=== PATIENT | female | born 1955 | race Caucasian/White ===

== ENCOUNTER 2018-09-27 20:21 | Inpatient (IN) | payer SELFPAY ==
[2018-09-27] MEDS ORDERED: Haloperidol INJ IV/IM* 5 MG/ML AMP IM ONE (21:28)
--- NOTE | 2018-09-27 21:29 | ED ---
Medical Screening - HPI Summary HPI Summary: Patient not cooperative highly agitated. Patient alert and oriented. Per son, patient who has no prior history of mental illness, has been acting highly agitated, delusional, paranoid over the past 6 weeks. States patient is sleeping intermittently, believes people are chasing her. States patient lives alone here [place]. Recently went on a family trip down to [place] and was subsequently admitted for 1 week in [place] for mental health issues. Patient has been out 2 weeks but has been acting the same since. Per son, patient was seen by PCP at [facility] and was referred to [facility] who instituted a 945 after evaluating patient. Son denies any indication of SI, HI. States patient medical history is DM, chronic back and shoulder pain. Son denies any knowledge of new medication, no significant physical or medical symptoms. States occasional EtOH, denies any knowledge of recreational drug use by patient. - History of Current Complaint Chief Complaint: EDMentalHealth Stated Complaint: MHE PER PT SON Time Seen by Provider: 09/27/18 20:49 Onset/Duration: Started Weeks Ago Severity: moderate PMH/Surg Hx/FS Hx/Imm Hx Endocrine/Hematology History: Reports: Hx Diabetes Cardiovascular History: Denies: Hx Pacemaker/ICD History: Denies: Hx Dialysis Musculoskeletal History: Reports: Hx Back Problems Denies: Hx Scoliosis Sensory History: Denies: Hx Eye Prosthesis Opthamlomology History: Denies: Hx Legally Blind EENT History: Denies: Hx Deafness Neurological History: Reports: Other Neuro Impairments/Disorders - MILD DJD PER PT., NO SX'S Denies: Hx Headaches Psychiatric History: Denies: Hx Autism Infectious Disease History: No Infectious Disease History: Denies: Traveled Outside the [place] in Last 30 Days - Social History Lives: Alone Alcohol Use: Occasionally Substance Use Type: Reports: None Hx Tobacco Use: No Review of Systems Constitutional: Negative Eyes: Negative ENT: Negative Cardiovascular: Negative Respiratory: Negative Gastrointestinal: Negative Genitourinary: Negative Musculoskeletal: Negative Skin: Negative Neurological: Negative Positive: Anxious, Other - agitated, not cooperative All Other Systems Reviewed And Are Negative: Yes Physical Exam Triage Information Reviewed: Yes Vital Signs On Initial Exam: Initial Vitals Temp Pulse Resp BP Pulse Ox 0 F 0 20 0/0 0 09/27/18 20:40 09/27/18 20:40 09/27/18 20:40 09/27/18 20:40 09/27/18 20:40 Vital Signs Reviewed: Yes Appearance: Positive: Well-Appearing Skin: Positive: Warm Head/Face: Positive: Normal Head/Face Inspection Eyes: Positive: Normal Neck: Positive: Supple Musculoskeletal: Positive: Normal Neurological: Positive: Normal Psychiatric: Positive: Other, Patient Uncooperative for Exam AVPU Assessment: Alert - Saulo Coma Scale Best Eye Response: 4 - Spontaneous Best Motor Response: 6 - Obeys Commands Best Verbal Response: 5 - Oriented Coma Scale Total: 15 Diagnostics - Vital Signs Vital Signs Temp Pulse Resp BP Pulse Ox 09/27/18 20:40 0 F 0 20 0/0 0 - Laboratory Result Diagrams: 09/27/18 22:38 09/27/18 22:38 Lab Statement: Any lab studies that have been ordered have been reviewed, and results considered in the medical decision making process. Course/Dx - Course Course Of Treatment: Patient not cooperative highly agitated. Patient alert and oriented. Per son, patient who has no prior history of mental illness, has been acting highly agitated, delusional, paranoid over the past 6 weeks. [facility] patient is sleeping intermittently, believes people are chasing her. [facility] patient lives alone here [place]. Recently went on a family trip down to [place] and was subsequently admitted for 1 week in [place] for mental health issues. Patient has been out 2 weeks but has been acting the same since. Per son, patient was seen by PCP at [facility] and was referred to [facility] who instituted a 945 after evaluating patient. Son denies any indication of SI, HI. [facility] patient medical history is DM, chronic back and shoulder pain. Son denies any knowledge of new medication, no significant physical or medical symptoms. States occasional EtOH, denies any knowledge of recreational drug use by patient. Patient on cooperative with physical exam, but is alert and oriented, moving normally. No work of breathing noted, no indication of pain. Vital signs within normal limits. Patient signed out to attending Dr. Stephens pending mental health evaluation. - Diagnoses Provider Diagnoses: Psychosis Discharge - Sign-Out/Discharge Documenting (check all that apply): Sign-Out Patient Signing out patient TO: Venu Currie Patient Received Moderate/Deep Sedation with Procedure: No - Discharge Plan Condition: Fair Disposition: ADMITTED TO [facility] - Billing Disposition and Condition Condition: FAIR Disposition: Admitted to [facility]
[2018-09-27] MEDS ORDERED: diPHENhydraMINE IV* 50 MG/ML 1 ml VIAL (BENADRYL) IM ONE (21:43)
[2018-09-27] MEDS ORDERED: LORazepam INJ* 2 MG/ML 1 ML VIAL IM ONE (21:43)
[2018-09-27] MEDS ORDERED: diPHENhydraMINE IV* 50 MG/ML 1 ml VIAL (BENADRYL) ONE (21:46)
[2018-09-27] MEDS ORDERED: LORazepam INJ* 2 MG/ML 1 ML VIAL ONE (21:47)
[2018-09-27 22:46] LABS: ABS Basophils 0.1 10^3/ul (0-0.2); ABS Eosinophils 0.1 10^3/ul (0-0.6); ABS Lymphocytes 1.7 10^3/ul (1.0-4.8); ABS Monocytes 0.8 10^3/ul (0-0.8); ABS Neutrophils 7.8 10^3/ul (1.5-7.7); ABS Nucleated RBC 0 10^3/ul; Eosinophil % 0.8 %; Hematocrit 45 % (33-41); Hemoglobin 15.3 g/dL (12.0-16.0); Lymphocyte % 16.1 %; Mean Corpuscular HGB Conc 34 g/dL (31-36); Mean Corpuscular Hemoglobin 31 pg (27-31); Mean Corpuscular Volume 90 fL (80-97); Nucleated Red Blood Cells % 0; Platelet Count 236 10^3/uL (150-450); Red Blood Count 4.98 10^6 /uL (3.70-4.87); Red Cell Distribution Width 13 % (10.5-15); White Blood Count 10.4 10^3/uL (3.5-10.8)
[2018-09-27 23:04] LABS: ALT 16 U/L (7-52); AST 19 U/L (13-39); Albumin/Globulin Ratio 1.9 (1-3); Alkaline Phosphatase 81 U/L (34-104); Anion Gap 8 mmol/L (2-11); BUN/Creatinine Ratio 14.1 (8-20); Blood Urea Nitrogen 11 mg/dL (6-24); CO2 Carbon Dioxide 24 mmol/L (22-32); Calcium 10.4 mg/dL (8.6-10.3); Chloride 105 mmol/L (101-111); EGFR Non-African American 74.4 (>60); Globulin 2.1 g/dL (2-4); Glucose 191 mg/dL (70-100); Potassium 3.4 mmol/L (3.5-5.0); Sodium 137 mmol/L (135-145); Total Protein 6.1 g/dL (6.4-8.9)
[2018-09-27 23:07] LABS: Acetaminophen < 15 mcg/mL; Alcohol < 10 mg/dL (<10); Salicylate < 2.50 mg/dL (<30)
[2018-09-27 23:21] LABS: TSH (Thyroid Stimulating Horm) 2.19 mcIU/mL (0.34-5.60)
[2018-09-28 08:57] LABS: Urine Appearance Cloudy; Urine Bilirubin Negative (Negative); Urine Blood Negative (Negative); Urine Color Yellow; Urine Glucose Negative (Negative); Urine Ketones Trace (Negative); Urine Nitrite Negative (Negative); Urine Protein Negative (Negative); Urine Specific Gravity 1.017 (1.010-1.030); Urine Urobilinogen Negative (Negative)
[2018-09-28 09:12] LABS: Barbiturates Urine Screen None Detected (None Detect); Benzodiazepine Urine Screen None Detected (None Detect); Urine Cannabinoids Screen None Detected (None Detect)
--- NOTE | 2018-09-28 09:28 | PN ---
ED Flex Patient Progress Note Date of Service: 09/27/18 Subjective: This is a 63 year-old F who is pending admission to [facility] / transfer to another psychiatric facility / discharge to home / or being observed secondary to delusions, paranoia. Pt. examined in room 5 at 0915. She resting comfortably without complaints. Eating breakfast. Objective: Vitals: Most recent vital signs documented below. General NAD, Alert and oriented x3. Laboratory: Current laboratory results documented below. Assessment: Paranoia. Plan: Pending MHE. Vital Signs Temp Pulse Resp BP Pulse Ox 0 F 68 22 103/64 97 09/27/18 20:40 09/28/18 07:00 09/27/18 21:49 09/28/18 06:51 09/28/18 07:00 Lab Results - Entire Visit 09/28/18 09/28/18 09/27/18 08:37 08:37 22:38 WBC RBC Hgb Hct MCV MCH MCHC RDW Plt Count MPV Neut % (Auto) Lymph % (Auto) [place] % (Auto) Eos % (Auto) Baso % (Auto) Absolute Neuts (auto) Absolute Lymphs (auto) Absolute Monos (auto) Absolute Eos (auto) Absolute Basos (auto) Absolute Nucleated RBC Nucleated RBC % Sodium 137 Potassium 3.4 L Chloride 105 Carbon Dioxide 24 Anion Gap 8 BUN 11 Creatinine 0.78 Est GFR ( Amer) 90.0 Est GFR (Non-Af Amer) 74.4 BUN/Creatinine Ratio 14.1 Glucose 191 H Calcium 10.4 H Total Bilirubin 0.70 AST 19 ALT 16 Alkaline Phosphatase 81 Total Protein 6.1 L Albumin 4.0 Globulin 2.1 Albumin/Globulin Ratio 1.9 TSH 2.19 Urine Color Yellow Urine Appearance Cloudy Urine pH 6.0 Ur Specific [place] 1.017 Urine Protein Negative Urine Ketones Trace A Urine Blood Negative Urine Nitrate Negative Urine Bilirubin Negative Urine Urobilinogen Negative Ur Leukocyte Esterase Negative Urine Glucose Negative Salicylates < 2.50 Urine Opiates Screen None detected Acetaminophen < 15 Ur Barbiturates Screen None detected Ur Phencyclidine Scrn None detected Ur Amphetamines Screen None detected U Benzodiazepines Scrn None detected Urine Cocaine Screen None detected U Cannabinoids Screen None detected Serum Alcohol < 10 09/27/18 22:38 WBC 10.4 RBC 4.98 H Hgb 15.3 Hct 45 H MCV 90 MCH 31 MCHC 34 RDW 13 Plt Count 236 MPV 10.0 Neut % (Auto) 74.9 Lymph % (Auto) 16.1 [place] % (Auto) 7.2 Eos % (Auto) 0.8 Baso % (Auto) 1.0 Absolute Neuts (auto) 7.8 H Absolute Lymphs (auto) 1.7 Absolute Monos (auto) 0.8 Absolute Eos (auto) 0.1 Absolute Basos (auto) 0.1 Absolute Nucleated RBC 0 Nucleated RBC % 0 Sodium Potassium Chloride Carbon Dioxide Anion Gap BUN Creatinine Est GFR ( Amer) Est GFR (Non-Af Amer) BUN/Creatinine Ratio Glucose Calcium Total Bilirubin AST ALT Alkaline Phosphatase Total Protein Albumin Globulin Albumin/Globulin Ratio TSH Urine Color Urine Appearance Urine pH Ur Specific [place] Urine Protein Urine Ketones Urine Blood Urine Nitrate Urine Bilirubin Urine Urobilinogen Ur Leukocyte Esterase Urine Glucose Salicylates Urine Opiates Screen Acetaminophen Ur Barbiturates Screen Ur Phencyclidine Scrn Ur Amphetamines Screen U Benzodiazepines Scrn Urine Cocaine Screen U Cannabinoids Screen Serum Alcohol
[2018-09-28] MEDS ORDERED: Al Hydrox/Mg Hydrox/Simet LIQ* 30 ML UDC PO PRN (16:21)
[2018-09-28] MEDS ORDERED: Acetaminophen TAB* 325 MG PO PRN (16:21)
[2018-09-28] MEDS ORDERED: Nicotine GUM* 2 MG PO PRN (16:21)
--- NOTE | 2018-09-28 16:21 | PN ---
ED Flex Patient Progress Note Date of Service: 09/28/18 Subjective: 63 y.o. white female with no previous mental health history started becoming confused and delusional following a routine colonoscopy event in July of this year. She presents as disorganized and combative, requiring stat medication in the ED Objective: aging white female in blue paper scrubs, disorganized and irrational Assessment: Unspecified Psychotic DO Plan: Admit to [facility] on involuntary 9.39 status. Vital Signs Temp Pulse Resp BP Pulse Ox 0 F 71 22 139/54 97 09/27/18 20:40 09/28/18 10:00 09/27/18 21:49 09/28/18 09:56 09/28/18 10:00 Lab Results - Entire Visit 09/28/18 09/28/18 09/27/18 08:37 08:37 22:38 WBC RBC Hgb Hct MCV MCH MCHC RDW Plt Count MPV Neut % (Auto) Lymph % (Auto) [place] % (Auto) Eos % (Auto) Baso % (Auto) Absolute Neuts (auto) Absolute Lymphs (auto) Absolute Monos (auto) Absolute Eos (auto) Absolute Basos (auto) Absolute Nucleated RBC Nucleated RBC % Sodium 137 Potassium 3.4 L Chloride 105 Carbon Dioxide 24 Anion Gap 8 BUN 11 Creatinine 0.78 Est GFR ( Amer) 90.0 Est GFR (Non-Af Amer) 74.4 BUN/Creatinine Ratio 14.1 Glucose 191 H Calcium 10.4 H Total Bilirubin 0.70 AST 19 ALT 16 Alkaline Phosphatase 81 Total Protein 6.1 L Albumin 4.0 Globulin 2.1 Albumin/Globulin Ratio 1.9 TSH 2.19 Urine Color Yellow Urine Appearance Cloudy Urine pH 6.0 Ur Specific [place] 1.017 Urine Protein Negative Urine Ketones Trace A Urine Blood Negative Urine Nitrate Negative Urine Bilirubin Negative Urine Urobilinogen Negative Ur Leukocyte Esterase Negative Urine Glucose Negative Salicylates < 2.50 Urine Opiates Screen None detected Acetaminophen < 15 Ur Barbiturates Screen None detected Ur Phencyclidine Scrn None detected Ur Amphetamines Screen None detected U Benzodiazepines Scrn None detected Urine Cocaine Screen None detected U Cannabinoids Screen None detected Serum Alcohol < 10 09/27/18 22:38 WBC 10.4 RBC 4.98 H Hgb 15.3 Hct 45 H MCV 90 MCH 31 MCHC 34 RDW 13 Plt Count 236 MPV 10.0 Neut % (Auto) 74.9 Lymph % (Auto) 16.1 [place] % (Auto) 7.2 Eos % (Auto) 0.8 Baso % (Auto) 1.0 Absolute Neuts (auto) 7.8 H Absolute Lymphs (auto) 1.7 Absolute Monos (auto) 0.8 Absolute Eos (auto) 0.1 Absolute Basos (auto) 0.1 Absolute Nucleated RBC 0 Nucleated RBC % 0 Sodium Potassium Chloride Carbon Dioxide Anion Gap BUN Creatinine Est GFR ( Amer) Est GFR (Non-Af Amer) BUN/Creatinine Ratio Glucose Calcium Total Bilirubin AST ALT Alkaline Phosphatase Total Protein Albumin Globulin Albumin/Globulin Ratio TSH Urine Color Urine Appearance Urine pH Ur Specific [place] Urine Protein Urine Ketones Urine Blood Urine Nitrate Urine Bilirubin Urine Urobilinogen Ur Leukocyte Esterase Urine Glucose Salicylates Urine Opiates Screen Acetaminophen Ur Barbiturates Screen Ur Phencyclidine Scrn Ur Amphetamines Screen U Benzodiazepines Scrn Urine Cocaine Screen U Cannabinoids Screen Serum Alcohol
[2018-09-28] MEDS ORDERED: LORazepam TAB(*) 1 MG PO PRN (16:23)
[2018-09-28] MEDS ORDERED: Haloperidol TAB* 5 MG PO PRN (16:23)
[2018-09-28] MEDS: Mouth Piece, Nicotine* 1 EACH CARTRIDGE INH PRN (16:24)
[2018-09-28] MEDS: risperiDONE TAB* 1 MG PO SCH (22:04)
[2018-09-29] MEDS: Nicotine Inhaler* 10 MG AMP INH PRN ×2 (01:15→17:00)
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
[2018-09-29] MEDS: risperiDONE TAB* 1 MG PO SCH (21:17)
[2018-09-29] MEDS: Divalproex DR TAB(*) 250 MG PO SCH (21:17)
--- NOTE | 2018-09-29 21:39 | CONSULT ---
Subjective Date of Service: 09/29/18 Interval History: ID: 63 yo F with PMH Bipolar d/o, NIDDM, and unclear hx of blt LE mild swelling who medicine is asked to consult on for leg pain HPI: Pt is an agitated historian, which limits HPI, she reports acute onset L leg pain, calf pain, knee, thigh and hip pain all at once like an "electric jolt " also reports an associated headache at the same time. She had a similar event happen in [place], some time ago, reports has had sig workup, including L LE radiograph and ultrasounds done in many states over many years. Reports no formal hx of a blood clot but has a fear of them. At time of interview her sx seem to have improved slightly. She denies chest pain or shortness of breath, GI , or complaints. Does report also R toe pain where she stubbed it today. PMHx: NIDDM, Bipolar d/o Social Hx:As per H/P Meds: Metformin at home, also on PRN lasix 20mg per her Review of Systems - Measurements Intake and Output: Intake and Output Last 24 Hours 09/27/18 09/28/18 09/29/18 09/30/18 06:59 06:59 06:59 06:59 Weight 140 lb 140 lb - Review of Systems General Comments: As per HPI Objective Active Medications: Acetaminophen (Tylenol Tab*) 650 mg PO Q4H PRN PRN Reason: for pain; or Temp >101 F Al Hydrox/Mg Hydrox/Simethicone (Maalox Plus*) 30 ml PO Q4H PRN PRN Reason: INDIGESTION Device (Nicotine Mouth Piece*) 1 each INH .USE W/ CARTRIDGE PRN PRN Reason: WITHDRAWAL - NICOTINE Last Admin: 09/28/18 16:24 Dose: 1 each Divalproex Sodium (Depakote Dr Tab(*)) 250 mg PO BID CONCEPCION Last Admin: 09/29/18 21:17 Dose: 250 mg Haloperidol (Haldol Tab*) 5 mg PO Q6H PRN PRN Reason: AGITATION Lorazepam (Ativan Tab(*)) 1 mg PO Q6H PRN PRN Reason: ANXIETY Metformin HCl (Glucophage*) 500 mg PO DAILY CONCEPCION Nicotine (Nicotine Inhaler*) 10 mg INH Q2H PRN PRN Reason: CRAVING Last Admin: 09/29/18 17:00 Dose: 10 mg Nicotine Polacrilex (Nicotine Gum*) 2 mg PO Q2H PRN PRN Reason: CRAVING Risperidone (Risperdal*) 1 mg PO BEDTIME CONCEPCION Last Admin: 09/29/18 21:17 Dose: 1 mg 142/61 this morning, HR 90 sinus on my exam, satting normally on RA this morning , RR 18 Oxygen Devices in Use Now: None Appearance: Mildly agitated woman but pleasant in NAD Eyes: No Scleral Icterus Ears/Nose/Mouth/Throat: NL Teeth, Lips, Gums Neck: NL Appearance and Movements; NL JVP Respiratory: Symmetrical Chest Expansion and Respiratory Effort, Clear to Auscultation Cardiovascular: NL Sounds; No Murmurs; No JVD, RRR Abdominal: - - NO apparent distention Extremities: - - 1+ non pitting edema to blt LE, no warmth no erythema, no maria dolores TTP of calf anterior or posterior Skin: No Rash or Ulcers Neurological: - - Slightly tangential but no focal neurolgic defecits Result Diagrams: 09/27/18 22:38 09/27/18 22:38 Assessment/Plan - Billing 63 yo F with PMH Bipolar d/o, NIDDM, and unclear hx of blt LE mild swelling who medicine is asked to consult on for leg pain, her sx have improved by the time our team has seen her. She apparently has had this worked up in the past and has neg DVT hx, though question ability of her to be able to accurately recall her medical workup. Nonetheless her HPI does not sound c/w DVT (acute sharp pain ), and possibly has some other sort of regional pain syndrome or even muscle cramps. #Leg pain: Ddx broad, suspicion for DVT is low and as such could order a D- Dimer to r/o, if this is positive could pursue DVT US on a non urgent matter -Mild edema and pt does take PRN lasix at home, she has mild hypOK on admission and she could be offered PRN 20mg of oral Lasix with potassium supplementation every other day for mild non pitting edema that is most likely dependent in nature. -tylenol, Ice packs, keep elevated, reassurance Thank you for this consult, we will follow the AM results of her D-Dimer and instruct or sign off as appropriate. Counseling and/or Coordination of Care Minutes: 20 mins spent evaluating and counseling patient Attending: Linda Sandoval
[2018-09-30] MEDS: metFORMIN* 500 MG TAB PO SCH (09:57)
[2018-09-30] MEDS: Divalproex DR TAB(*) 250 MG PO SCH ×2 (09:57→20:42)
--- NOTE | 2018-09-30 10:15 | PN ---
Hospitalist Progress Note Date of Service: 09/30/18 Reviewed D-dimer and was found to be negative and since previous W/U for DVT is negative, this essentially rules out presence of any form of venous thromboembolism. Agree with Lasix and PRN potassium supplementations ordered by Dr. Sandoval. Will order CMP in AM to evaluate. Please replace as needed per order if K<3.5. May replace with 10 mEQ per every tenth decimal point below 3.5. Continue PRN Tylenol for pain and if persistent, may consider Scheduled ? Tylenol 1000 BID w/PRN not to exceed max dose of 4g/day. Consider psych causes of above complaints. Please call us if with questions.
[2018-09-30] MEDS: risperiDONE TAB* 1 MG PO SCH (20:42)
[2018-09-30] MEDS: Furosemide TAB* 20 MG PO PRN (21:36)
[2018-09-30] MEDS: Potassium Chlor TAB* 20 MEQ TAB.ER PO PRN (21:37)
[2018-10-01] MEDS: Nicotine Inhaler* 10 MG AMP INH PRN ×2 (01:00→18:47)
[2018-10-01] MEDS: Divalproex DR TAB(*) 250 MG PO SCH ×2 (09:40→20:39)
[2018-10-01] MEDS: metFORMIN* 500 MG TAB PO SCH (09:41)
--- NOTE | 2018-10-01 13:43 | PN ---
Subjective - Subjective Date of Service: 10/01/18 Service Type: [id number] Hosp care 15 min low complexity Subjective: Haroldo remains hyperverbal and hyperkinetic with all sorts of plans for when she gets out of the hospital. "I'm getting on a plane down to [place]. My son is down there, he's sick and he needs me!" She has been adherent with medications and mostly cooperative with milieu expectations. She is aware that her son Jj is coming in tomorrow for a family meeting and is agreeable with this. She is requesting outdoor privileges and promises to conform to the rules and expectations of staff pass. She denies SI or HI. Objective - General Observations Appearance: Well Groomed Appears Stated Age: No Stature: WNL Posture: WNL Eye Contact: Average Behavior/Activity: WNL - Interaction Observations Attitude Towards Examiner: Cooperative Stated Mood: Elevated, Expansive Speech Pattern/Tone: Pressured Thought Process: Tangential Perception: WNL Thought Content: Paranoid Thought Process: Lethality: Paranoid Ideation Hallucination Type: None Delusion Type: Persecution - Cognitive Function Orientation: A&O x 4 Level of Consciousness: Awake Cognition: WNL Estimated Intelligence: Normal Insight: WNL Judgment Within Normal Limits: No - Medication Compliance Cooperative with Inpatient Medication Regimen: Yes - Group Participation Participates in Group Activities: Yes Assessment - Assessment Merits Inpatient Hospitalization: For Immediate Safety, For Stabilization Inpatient DSM-V Dx: F31.2 Clinical Impression: 63 y.o. , white female with a recent psychiatric admission in [place] for bipolar morena brought into the ED by her son due to several months of worsening elevated mood, irritability, agitation and paranoia. BSU: Problem List - Patient Problems (1) Bipolar affective, manic, severe w/ psych Current Visit: Yes Status: Acute Priority: High Code(s): F31.2 - BIPOLAR DISORD, CRNT EPISODE MANIC SEVERE W PSYCH FEATURES SNOMED Code(s): 418221223 Plan - Plan Treatment Plan: Name: HAROLDO GONZALEZ Birthdate: 1955 [id number] The patient has been started on a trial of Depakote 250mg PO BID and risperidone 1mg PO qhs. She remains manic. Family meeting tomorrow (10/02) at 3: 00. Continue inpatient treatment. Continued Medication Management: Start Medication Medications: Current Medications Acetaminophen (Tylenol Tab*) 650 mg PO Q4H PRN PRN Reason: for pain; or Temp >101 F Last Admin: 09/29/18 21:44 Dose: 650 mg Al Hydrox/Mg Hydrox/Simethicone (Maalox Plus*) 30 ml PO Q4H PRN PRN Reason: INDIGESTION Device (Nicotine Mouth Piece*) 1 each INH .USE W/ CARTRIDGE PRN PRN Reason: WITHDRAWAL - NICOTINE Last Admin: 09/28/18 16:24 Dose: 1 each Divalproex Sodium (Depakote Dr Tab(*)) 250 mg PO BID [facility] Last Admin: 10/01/18 09:40 Dose: 250 mg Furosemide (Lasix Tab*) 20 mg PO DAILY PRN PRN Reason: CONGESTION Last Admin: 09/30/18 21:36 Dose: 20 mg Haloperidol (Haldol Tab*) 5 mg PO Q6H PRN PRN Reason: AGITATION Lorazepam (Ativan Tab(*)) 1 mg PO Q6H PRN PRN Reason: ANXIETY Metformin HCl (Glucophage*) 500 mg PO DAILY [facility] Last Admin: 10/01/18 09:41 Dose: Not Given Nicotine (Nicotine Inhaler*) 10 mg INH Q2H PRN PRN Reason: CRAVING Last Admin: 10/01/18 01:00 Dose: 10 mg Nicotine Polacrilex (Nicotine Gum*) 2 mg PO Q2H PRN PRN Reason: CRAVING Potassium Chloride (Klor Con Er Tab*) 20 meq PO DAILY PRN PRN Reason: LEG CRAMPS Stop: 10/09/18 22:07 Last Admin: 09/30/18 21:37 Dose: 20 meq Risperidone (Risperdal*) 1 mg PO BEDTIME [facility] Last Admin: 09/30/18 20:42 Dose: 1 mg - Discharge Plan Discharge Plan: Inpatient Hospitalization Lab Results - Lab Results Lab Results: 09/27/18 09/28/18 09/30/18 22:38 23:20 08:41 D-Dimer, Quantitative < 200 POC Glucose (mg/dL) 144 H Syphilis IgG Antibody Nonreactive 09/30/18 10/01/18 16:51 09:40 D-Dimer, Quantitative POC Glucose (mg/dL) 129 H 103 H Syphilis IgG Antibody
[2018-10-01] MEDS: Mouth Piece, Nicotine* 1 EACH CARTRIDGE INH PRN (18:47)
[2018-10-01] MEDS: risperiDONE TAB* 1 MG PO SCH (20:39)
[2018-10-02] MEDS: Divalproex DR TAB(*) 250 MG PO SCH ×2 (09:02→20:14)
[2018-10-02] MEDS: metFORMIN* 500 MG TAB PO SCH (09:02)
[2018-10-02] MEDS: Nicotine Inhaler* 10 MG AMP INH PRN (09:42)
--- NOTE | 2018-10-02 11:11 | PN ---
BSU: Group Therapy Note - Service Type Service Type: [id number] Group Psychotherapy
--- NOTE | 2018-10-02 15:41 | PN ---
Subjective - Subjective Date of Service: 10/02/18 Service Type: [id number] Family Medical Psyc Subjective: Patient seen for family meeting along with sons Juanito and Jj as well as inpatient [facility]. Patient remains hyperverbal and paranoid towards her brother. She is taking meds as recommended. Denies SI or HI. Want immediate d /c but family does not feel she's back to baseline. Objective - General Observations Appearance: Well Groomed Stature: WNL Posture: WNL Eye Contact: Intense Behavior/Activity: Impulsive - Interaction Observations Attitude Towards Examiner: Defensive Stated Mood: Elevated, Expansive Speech Pattern/Tone: Pressured Thought Process: Tangential Perception: WNL Thought Content: Paranoid Thought Process: Lethality: Paranoid Ideation Hallucination Type: None Delusion Type: Persecution - Cognitive Function Orientation: A&O x 4 Level of Consciousness: Awake Cognition: WNL Estimated Intelligence: Normal Insight: Difficulty Acknowledging Presence of Psyciatric Problems Judgment Within Normal Limits: No Ability to Make Reasonable Decisions: Serverely Impaired - Medication Compliance Cooperative with Inpatient Medication Regimen: Yes - Group Participation Participates in Group Activities: Yes Assessment - Assessment Merits Inpatient Hospitalization: For Immediate Safety, For Stabilization Inpatient DSM-V Dx: F31.2 Clinical Impression: 63 y.o. , white female with a recent psychiatric admission in [place] for bipolar morena brought into the ED by her son due to several months of worsening elevated mood, irritability, agitation and paranoia. Plan - Plan Treatment Plan: Name: HAROLDO GONZALEZ Birthdate: 1955 [id number] The patient has been started on a trial of Depakote 250mg PO BID and risperidone 1mg PO qhs. She remains manic. VPA level in AM. Continue inpatient treatment. Continued Medication Management: Start Medication Medications: Current Medications Acetaminophen (Tylenol Tab*) 650 mg PO Q4H PRN PRN Reason: for pain; or Temp >101 F Last Admin: 09/29/18 21:44 Dose: 650 mg Al Hydrox/Mg Hydrox/Simethicone (Maalox Plus*) 30 ml PO Q4H PRN PRN Reason: INDIGESTION Device (Nicotine Mouth Piece*) 1 each INH .USE W/ CARTRIDGE PRN PRN Reason: WITHDRAWAL - NICOTINE Last Admin: 10/01/18 18:47 Dose: 1 each Divalproex Sodium (Depakote Dr Tab(*)) 250 mg PO BID [facility] Last Admin: 10/02/18 09:02 Dose: 250 mg Furosemide (Lasix Tab*) 20 mg PO DAILY PRN PRN Reason: CONGESTION Last Admin: 09/30/18 21:36 Dose: 20 mg Haloperidol (Haldol Tab*) 5 mg PO Q6H PRN PRN Reason: AGITATION Lorazepam (Ativan Tab(*)) 1 mg PO Q6H PRN PRN Reason: ANXIETY Metformin HCl (Glucophage*) 500 mg PO DAILY [facility] Last Admin: 10/02/18 09:02 Dose: 500 mg Nicotine (Nicotine Inhaler*) 10 mg INH Q2H PRN PRN Reason: CRAVING Last Admin: 10/02/18 09:42 Dose: 10 mg Nicotine Polacrilex (Nicotine Gum*) 2 mg PO Q2H PRN PRN Reason: CRAVING Potassium Chloride (Klor Con Er Tab*) 20 meq PO DAILY PRN PRN Reason: LEG CRAMPS Stop: 10/09/18 22:07 Last Admin: 09/30/18 21:37 Dose: 20 meq Risperidone (Risperdal*) 1 mg PO BEDTIME [facility] Last Admin: 10/01/18 20:39 Dose: 1 mg - Discharge Plan Discharge Plan: Inpatient Hospitalization
[2018-10-02] MEDS: risperiDONE TAB* 1 MG PO SCH (20:13)
[2018-10-03] MEDS: Potassium Chlor TAB* 20 MEQ TAB.ER PO PRN (05:13)
[2018-10-03] MEDS: Furosemide TAB* 20 MG PO PRN (05:13)
[2018-10-03] MEDS: Divalproex DR TAB(*) 250 MG PO SCH (08:46)
[2018-10-03] MEDS: metFORMIN* 500 MG TAB PO SCH (08:46)
[2018-10-03 08:49] LABS: HDL Cholesterol 54.4 mg/dL
--- NOTE | 2018-10-03 11:21 | PN ---
BSU: Group Therapy Note - Service Type Service Type: [id number] Group Psychotherapy - Cognitive Behavioral Group Therapy ( CBT):Patient presented in CBT programming as disorganized and disruptive in discussion and needed repeated redirection to attend to presented materials.
--- NOTE | 2018-10-03 12:31 | PN ---
Subjective - Subjective Date of Service: 10/03/18 Service Type: [id number] Hosp care 15 min low complexity Subjective: The patient has self-discontinued Depakote due to concerns of loose stools and stomach discomfort. "I didn't have this until you added that one." She is taking risperidone as prescribed. Still not sleeping well and can be irritable and hyperverbal at times. Denies SI or HI and no evidence of paranoid thinking today. Going to groups and participating well. Objective - General Observations Appearance: Well Groomed Appears Stated Age: Yes Stature: WNL Posture: WNL Eye Contact: Average Behavior/Activity: Accelerated - Interaction Observations Attitude Towards Examiner: Cooperative Stated Mood: Elevated, Expansive Affect: Bright Speech Pattern/Tone: Pressured Thought Process: Tangential Perception: WNL Thought Content: Paranoid Thought Process: Lethality: Paranoid Ideation Hallucination Type: None Delusion Type: Persecution - Cognitive Function Orientation: A&O x 4 Level of Consciousness: Awake Cognition: WNL Estimated Intelligence: Normal Insight: Difficulty Acknowledging Presence of Psyciatric Problems Judgment Within Normal Limits: No Ability to Make Reasonable Decisions: Mildly Impaired - Medication Compliance Cooperative with Inpatient Medication Regimen: Partial - Group Participation Participates in Group Activities: Yes Assessment - Assessment Merits Inpatient Hospitalization: For Immediate Safety, For Stabilization Inpatient DSM-V Dx: F31.2 Clinical Impression: 63 y.o. , white female with a recent psychiatric admission in [place] for bipolar morena brought into the ED by her son due to several months of worsening elevated mood, irritability, agitation and paranoia. Plan - Plan Treatment Plan: Name: HAROLDO GONZALEZ Birthdate: 1955 [id number] The patient has been started on a trial of Depakote 250mg PO BID and risperidone 1mg PO qhs. She insists on stopping Depakote due to GI issues. Continue inpatient treatment. Continued Medication Management: Start Medication Medications: Current Medications Acetaminophen (Tylenol Tab*) 650 mg PO Q4H PRN PRN Reason: for pain; or Temp >101 F Last Admin: 09/29/18 21:44 Dose: 650 mg Al Hydrox/Mg Hydrox/Simethicone (Maalox Plus*) 30 ml PO Q4H PRN PRN Reason: INDIGESTION Device (Nicotine Mouth Piece*) 1 each INH .USE W/ CARTRIDGE PRN PRN Reason: WITHDRAWAL - NICOTINE Last Admin: 10/01/18 18:47 Dose: 1 each Furosemide (Lasix Tab*) 20 mg PO DAILY PRN PRN Reason: CONGESTION Last Admin: 10/03/18 05:13 Dose: 20 mg Haloperidol (Haldol Tab*) 5 mg PO Q6H PRN PRN Reason: AGITATION Lorazepam (Ativan Tab(*)) 1 mg PO Q6H PRN PRN Reason: ANXIETY Metformin HCl (Glucophage*) 500 mg PO DAILY [facility] Last Admin: 10/03/18 08:46 Dose: Not Given Nicotine (Nicotine Inhaler*) 10 mg INH Q2H PRN PRN Reason: CRAVING Last Admin: 10/02/18 09:42 Dose: 10 mg Nicotine Polacrilex (Nicotine Gum*) 2 mg PO Q2H PRN PRN Reason: CRAVING Potassium Chloride (Klor Con Er Tab*) 20 meq PO DAILY PRN PRN Reason: LEG CRAMPS Stop: 10/09/18 22:07 Last Admin: 10/03/18 05:13 Dose: 20 meq Risperidone (Risperdal*) 1 mg PO BEDTIME [facility] Last Admin: 10/02/18 20:13 Dose: 1 mg - Discharge Plan Discharge Plan: Inpatient Hospitalization Lab Results - Lab Results Lab Results: 09/30/18 10/01/18 10/03/18 16:51 09:40 07:42 POC Glucose (mg/dL) 129 H 103 H Hemoglobin A1c Triglycerides 112 Cholesterol 196 LDL Cholesterol 119 HDL Cholesterol 54.4 Valproic Acid 20.0 L 10/03/18 07:42 POC Glucose (mg/dL) Hemoglobin A1c 7.1 H Triglycerides Cholesterol LDL Cholesterol HDL Cholesterol Valproic Acid
--- NOTE | 2018-10-03 16:24 | PN ---
BSU: Group Therapy Note - Service Type Service Type: [id number] Group Psychotherapy - Medication Education Group: Patient presented as disorganized and disruptive in discussion and needed repeated redirection to attend to presented materials.
[2018-10-03] MEDS: risperiDONE TAB* 1 MG PO SCH (20:41)
[2018-10-03] MEDS: Nicotine Inhaler* 10 MG AMP INH PRN (22:17)
[2018-10-04] MEDS: metFORMIN* 500 MG TAB PO SCH (07:56)
--- NOTE | 2018-10-04 11:11 | PN ---
BSU: Group Therapy Note - Service Type Service Type: [id number] Group Psychotherapy - Cognitive Behavioral Group Therapy ( CBT):Patient presented in CBT programming as disorganized and disruptive in discussion and needed repeated redirection to attend to presented materials. Rola continues to present as hyperverbal and is intrusive in group dynamics secondary to her continuous running commentary.
--- NOTE | 2018-10-04 13:43 | PN ---
Subjective - Subjective Date of Service: 10/04/18 Service Type: [id number] Hosp care 15 min low complexity Subjective: Rola remains somewhat hypomanic. She is over-sharing in groups and can get irritable if contradicted. Still believes that her brother Ashutosh is trying to persecute and steal from her. She states that she feels better since discontinuing Depakote therapy and says that Risperdal is better tolerated. She continues to deny SI or HI. Objective - General Observations Appearance: Well Groomed Appears Stated Age: Yes Stature: WNL Posture: WNL Eye Contact: Average Behavior/Activity: WNL - Interaction Observations Attitude Towards Examiner: Cooperative Stated Mood: Irritable Affect: Full Speech Pattern/Tone: Clear Thought Process: Tangential Perception: WNL Thought Content: Paranoid Thought Process: Lethality: Paranoid Ideation Hallucination Type: None Delusion Type: Persecution - Cognitive Function Orientation: A&O x 4 Level of Consciousness: Awake Cognition: WNL Estimated Intelligence: Normal Insight: WNL Judgment Within Normal Limits: Yes Ability to Make Reasonable Decisions: Mildly Impaired - Medication Compliance Cooperative with Inpatient Medication Regimen: Yes - Group Participation Participates in Group Activities: Yes Assessment - Assessment Merits Inpatient Hospitalization: For Immediate Safety, For Stabilization Inpatient DSM-V Dx: F31.2 Clinical Impression: 63 y.o. , white female with a recent psychiatric admission in [place] for bipolar morena brought into the ED by her son due to several months of worsening elevated mood, irritability, agitation and paranoia. Plan - Plan Treatment Plan: Name: ROLA GONZALEZ Birthdate: 1955 [id number] The patient has been started on a trial of risperidone 1mg PO qhs. She is still hypomanic but not acutely dangerous. She is willing to f/u at [facility]. Will d/c tomorrow (10/04). Continued Medication Management: Start Medication Medications: Current Medications Acetaminophen (Tylenol Tab*) 650 mg PO Q4H PRN PRN Reason: for pain; or Temp >101 F Last Admin: 09/29/18 21:44 Dose: 650 mg Al Hydrox/Mg Hydrox/Simethicone (Maalox Plus*) 30 ml PO Q4H PRN PRN Reason: INDIGESTION Device (Nicotine Mouth Piece*) 1 each INH .USE W/ CARTRIDGE PRN PRN Reason: WITHDRAWAL - NICOTINE Last Admin: 10/01/18 18:47 Dose: 1 each Furosemide (Lasix Tab*) 20 mg PO DAILY PRN PRN Reason: CONGESTION Last Admin: 10/03/18 05:13 Dose: 20 mg Haloperidol (Haldol Tab*) 5 mg PO Q6H PRN PRN Reason: AGITATION Lorazepam (Ativan Tab(*)) 1 mg PO Q6H PRN PRN Reason: ANXIETY Metformin HCl (Glucophage*) 500 mg PO DAILY [facility] Last Admin: 10/04/18 07:56 Dose: 500 mg Nicotine (Nicotine Inhaler*) 10 mg INH Q2H PRN PRN Reason: CRAVING Last Admin: 10/03/18 22:17 Dose: 10 mg Nicotine Polacrilex (Nicotine Gum*) 2 mg PO Q2H PRN PRN Reason: CRAVING Potassium Chloride (Klor Con Er Tab*) 20 meq PO DAILY PRN PRN Reason: LEG CRAMPS Stop: 10/09/18 22:07 Last Admin: 10/03/18 05:13 Dose: 20 meq Risperidone (Risperdal*) 1 mg PO BEDTIME [facility] Last Admin: 10/03/18 20:41 Dose: 1 mg - Discharge Plan Discharge Plan: Outpatient Follow Up Outpatient Program: [facility] Lab Results - Lab Results Lab Results: 10/03/18 10/03/18 10/04/18 07:42 07:42 07:51 POC Glucose (mg/dL) 139 H Hemoglobin A1c 7.1 H Triglycerides 112 Cholesterol 196 LDL Cholesterol 119 HDL Cholesterol 54.4 Valproic Acid 20.0 L
[2018-10-04] MEDS: risperiDONE TAB* 1 MG PO SCH (21:40)
[2018-10-05] MEDS: Nicotine Inhaler* 10 MG AMP INH PRN (08:00)
[2018-10-05 08:54] VITALS: BP 131/66
[2018-10-05] MEDS: metFORMIN* 500 MG TAB PO SCH (08:56)
--- NOTE | 2018-10-05 16:35 | DS ---
DISCHARGE SUMMARY: DATE OF ADMISSION: 09/28/18 DATE OF DISCHARGE: 10/05/18 DISCHARGE DIAGNOSES: Are as follows: [place] I: Bipolar disorder type 1, most recent episode manic, se hiral with psychotic features. [place] II: Deferred. CONDITION AT THE TIME OF DISCHARGE: Improved, although the patient is still exhibiting some slight s igns of hypomania including mild irritability and slightly hyperverbal speech. She is no longer over tly paranoid. She has better insight into her condition. She is tolerating her medication well and agreeable with an outpatient followup appointment at [facility] within 1 week of d ischarge. We have had a family meeting attended by 2 of her sons, Leonel and Jj, who are agreeable w ith the discharge plan. The patient has demonstrated no evidence of violence towards herself or othe rs and at this time, we do not feel that she is warranting continued involuntary inpatient treatment. MENTAL STATUS EXAMINATION: At the time of discharge, the patient is an aging white female who is wea ring blue scrubs. She is clean and fairly well groomed. Calm, cooperative with a great sense of hum or. Speech is mildly pressured, but otherwise fluent. Mood appears to be hypomanic with a somewhat expansive affect. Thought process is linear to tangential. Thought content significant for her radha re to leave the hospital. She denies suicidal or homicidal ideation. She denies auditory or visual hallucinations. Insight and judgment are fair given her desire to follow up on an outpatient basis. Cognitively, she is awake and alert with what would appear to be an average intellect. LABORATORY DATA: Comprehensive metabolic testing was performed on 10/03/18 revealing a slightly elev ated hemoglobin A1c of 7.1%, triglycerides 112, cholesterol 196, LDL cholesterol 119, HDL cholesterol 54.4. DISCHARGE INSTRUCTIONS: To the patient are as follows: Part A: Medications: 1. She is on Lasix 20 mg p.o. daily. 2. Metformin 500 mg p.o. daily. 3. Risperidone 1 mg p.o. at bedtime. 4. Potassium chloride 20 mEq p.o. daily. Part B: Diet: She is on a diabetic diet. Part C: Activities: As tolerated. The patient is a smoker; however, she is declining the offer of continued nicotine replacement therapy, expressing a desire to continue smoking after discharge. We have provided her with the [facility] Smokers' Quitline at the toll free number of [phone]. There are no laboratory or diagnostic studies pending at the time of discharge. Part D: Followup care: The patient will be seen at the [facility] on , 10/10/18 at 12:30 p.m. for her intake. Part E: Substance abuse followup is nonapplicable. HOSPITAL COURSE: Part A: Reason for admission: The patient is a 63-year-old white female w ith a recent involuntary psychiatric hospitalization in [place], who was brought in by her son due to several months of agitated paranoid behavior. While she was in the emergency room, she was screamin g at her son as well as staff members and required stat administration of antipsychotic medications t o calm her down. When I meet with her, she states that her family is misunderstanding her situation and that the real story is that her property is being stolen from them. She indicates that she has b een stressed recently because she has a son in [place] who has an undiagnosed medical illness, but was recently incarcerated due to abuse of drugs and alcohol. She admits to recent financial str essors. She has been losing weight and not sleeping. She was very upset about being hospitalized in [place], stating that they had beaten her and "shot me full of meds." Apparently, she had been visi ting a cousin there and was so agitated that her family called the police and had [facility]. The patient is overtly paranoid, believing that people are breaking into her family's proper ty and believing there is some type of conspiracy to have her placed in the hospital. For collateral information, I called her son who is not available and instead spoke with her [id number], October [place]. According to the family's point of view, the patient has never demonstrated any prior illn esses or prior symptoms of behavioral problems until shortly after receiving a colonoscopy test in july of this year. Within 5 days, they noticed a change in her affect. She reported to them a t that time that she no longer felt depressed and noticed that this was the best she had felt in year s. Without notifying anyone, she spontaneously went on a trip to [place] to visit her younges t son. There, the family noted that she was not sleeping, had pressured speech and had increased spe nding. Her other son who resides here in the [place] area had plan to take a vacation with her in [facility] in mid-August and rather than going down there with them, she met them there. She again appea red paranoid, ultimately abandoning the family without telling them and went [place] the [place] side [place] to visit a remote cousin. There, she was hospitalized and eventually, she returned to [facility], but refused to take any further medications. The family tried to get her an intake at [facility], but this was not scheduled until 10/03/18. Meanwhile, she has devel oped delusions that people are spying on her and stealing from her. They estimate that she has had a close to 30-pound weight loss since her symptoms started in early August. Part B: Psychiatric treatment rendered: The patient was admitted to the [facility] ([facility]] and placed on q.15 minute checks for her own safety. She agreed to a trial of low-dose risperidone , which was augmented with Depakote 250 mg p.o. b.i.d. On the second day of admission, she complaine d of some acute pain in her bilateral legs, for which she was evaluated by the hospitalist service. At that time, her D-dimer levels were within normal limits, but she was started on a trial of Lasix a nd potassium chloride. As the hospital progressed, she started improving, but she stopped taking Dep akote, feeling that it gave her loose stools and abdominal pain. After this was discontinued, she no kenji that she tolerated the rest of her medications well. Gradually, her paranoia decreased, her leve l of agitation decreased and we had no further necessity for stat medications after admission. We rasmussen d a therapeutic family meeting attended by her 2 sons, which went fairly well. At this time, they ar e agreeable to taking her home, although she is not quite back at baseline up until this point. None theless, she is denying suicidal or homicidal thoughts and we see no justification for continued invo luntary treatment. The plan is for her to continue taking the Risperdal and arrive at [facility] for an intake next 10/10/18 and they will continue her treatment at that t jatinder. [id number]/CPS #: [id number]
== END 2018-10-05 13:48 | disposition home or self-care (01) | DRG 885 ==
LOC: ED 20:21 → BSU 09-28 16:21 → ED 09-28 20:15 → BSU 10-01 12:26
PROVIDERS: ADMIT Psychiatry & Neurology Psychiatry; ATTEND Psychiatry & Neurology Psychiatry
PROC: GZHZZZZ Group Psychotherapy (ICD-10-PCS; principal; 2018-09-28)
DX: F31.2 Bipolar disorder, current episode manic severe with psychotic features (principal); F17.210 Nicotine dependence, cigarettes, uncomplicated; E11.9 Type 2 diabetes mellitus without complications; E87.6 Hypokalemia; G89.29 Other chronic pain; M54.9 Dorsalgia, unspecified; M25.519 Pain in unspecified shoulder; M79.674 Pain in right toe(s); Z81.8 Family history of other mental and behavioral disorders; Z79.84 Long term (current) use of oral hypoglycemic drugs; Z72.89 Other problems related to lifestyle
CPT/HCPCS: 36415; 70450; 80053; 80061; 80164; 80307; 80320; 80329; 81003; 83036; 84443; 85025; 85379; 86592; 90847; 90853; 99222; 99231; 99238; 99285; A9270-GY; G0480; J1200; J1630; J2060

== ENCOUNTER 2018-12-11 23:44 | Emergency (ER) | payer BC ==
[2018-12-12] MEDS ORDERED: Clindamycin 900 MG/D5W BAG(*) 900 MG/50 ML BAG IVPB ONE (00:33)
[2018-12-12] MEDS ORDERED: Acetaminophen TAB* 325 MG PO ONE (00:42)
[2018-12-12] MEDS ORDERED: Lidocaine 2% 10 ML* VIAL INJ ONE (00:56)
[2018-12-12] MEDS ORDERED: Lidocaine 2% PF * 5 ML VIAL INJ ONE (01:15)
[2018-12-12] MEDS ORDERED: Ondansetron INJ* 2 MG/ML VIAL IV ONE (01:21)
[2018-12-12] MEDS ORDERED: Morphine 4 MG/ML VIAL (1 ml) 4 MG/ML VIAL IV ONE (01:21)
[2018-12-12 01:23] LABS: ABS Basophils 0.1 10^3/ul (0-0.2); ABS Eosinophils 0.5 10^3/ul (0-0.6); ABS Lymphocytes 2.4 10^3/ul (1.0-4.8); ABS Monocytes 1.4 10^3/ul (0-0.8); ABS Neutrophils 10.2 10^3/ul (1.5-7.7); Eosinophil % 3.2 %; Hematocrit 42 % (35-47); Hemoglobin 14.6 g/dL (12.0-16.0); Lymphocyte % 16.8 %; Mean Corpuscular HGB Conc 35 g/dL (31-36); Mean Corpuscular Hemoglobin 31 pg (27-31); Mean Corpuscular Volume 89 fL (80-97); Mean Platelet Volume 9.1 fL (7.4-10.4); Platelet Count 332 10^3/uL (150-450); Red Blood Count 4.76 10^6 /uL (3.70-4.87); Red Cell Distribution Width 13 % (10-15); White Blood Count 14.6 10^3/uL (3.5-10.8)
[2018-12-12 01:40] LABS: Albumin/Globulin Ratio 1.6 (1-3); BUN/Creatinine Ratio 16.9 (8-20); C Reactive Protein 22.84 mg/L (<8.01); Calcium 10.1 mg/dL (8.6-10.3); EGFR African American 124.2 (>60); EGFR Non-African American 102.6 (>60); Globulin 2.5 g/dL (2-4); Potassium 3.9 mmol/L (3.5-5.0); Total Bilirubin 0.4 mg/dL (0.2-1.0); Total Protein 6.5 g/dL (6.4-8.9)
--- NOTE | 2018-12-12 02:18 | ED ---
Upper Extremity Pain - HPI Summary HPI Summary: Patient complains of redness, swelling and pain to right index finger 6 days. Patient unaware of any trauma or bite to finger. Patient was seen 5 days ago at a clinic in [place] and placed on antibiotics for 4 days, however symptoms progressed. Patient finished antibiotics yesterday morning. Denies fever, cough, sore throat, CP, SOB, N/V/D, abdominal pain, change in urine, change in BM. Medical history is diabetes. Patient had Advil at 2100 today. - History of Current Complaint Chief Complaint: EDExtremityUpper Stated Complaint: BLISTER ON FINGER PER PT Time Seen by Provider: 12/12/18 00:02 Hx Obtained From: Patient Mechanism Of Injury: Unknown Onset/Duration: Started Days Ago Timing: Constant Severity Initially: Moderate Severity Currently: Moderate Pain Location: Finger Character: Aching, Throbbing Aggravating Factor(s): Movement Alleviating Factor(s): Nothing Associated Signs & Symptoms: Positive: Swelling, Redness - Allergies/Home Medications Allergies/Adverse Reactions: Allergies Allergy/AdvReac Type Severity Reaction Status Date / Time cephalexin [From Keflex] Allergy Swelling Verified 12/11/18 23:57 Of Face,Lips,& Throat PMH/Surg Hx/FS Hx/Imm Hx Endocrine/Hematology History: Reports: Hx Diabetes - pt reports since june 2010 Cardiovascular History: Denies: Hx Pacemaker/ICD Respiratory History: Reports: Hx Pneumonia - pt reports 5 years ago Denies: Hx Asthma - pt denies History: Denies: Hx Dialysis Musculoskeletal History: Reports: Hx Back Problems Denies: Hx Scoliosis Sensory History: Reports: Hx Contacts or Glasses - pt reports glasses use for reading/distance. doesn't currently have glasses Denies: Hx Eye Prosthesis, Hx Legally Blind, Hx Deafness, Hx Hearing Aid Opthamlomology History: Reports: Hx Contacts or Glasses - pt reports glasses use for reading/distance. doesn't currently have glasses Denies: Hx Eye Prosthesis, Hx Legally Blind EENT History: Denies: Hx Deafness Neurological History: Reports: Other Neuro Impairments/Disorders - Pt reports 2 concussions in childhood Denies: Hx Headaches Psychiatric History: Reports: Hx Inpatient Treatment - 2019- unknown exact dates Denies: Hx Autism, Hx Eating Disorder, Hx Suicide Attempt, Hx of Violent Episodes Against Others - Surgical History Surgery Procedure, Year, and Place: Calcium growth removal on back-4th grade. Tubal ligation-1986. Colonoscopy-august 2018 Infectious Disease History: No Infectious Disease History: Denies: Traveled Outside the [place] in Last 30 Days - Family History Known Family History: Positive: Non-Contributory - Social History Alcohol Use: Rare Substance Use Type: Reports: None Hx Tobacco Use: No Smoking Status (MU): Heavy Every Day Tobacco Smoker Type: Cigarettes Review of Systems Constitutional: Negative Eyes: Negative ENT: Negative Cardiovascular: Negative Respiratory: Negative Gastrointestinal: Negative Genitourinary: Negative Musculoskeletal: Negative Skin: Other Neurological: Negative Psychological: Normal All Other Systems Reviewed And Are Negative: Yes Physical Exam - Summary Physical Exam Summary: Erythema, swelling to the entire length of index finger of right hand. Large blister over the distal phalanx on volar side. White purulence visible to skin over the volar side of the second phalanx. No pain with passive extension. Pain to palpation over abscess but not along proximal flexor surfaces. Finger does not present in flexed position. PMS intact distally. Triage Information Reviewed: Yes Vital Signs On Initial Exam: Initial Vitals Temp Pulse Resp BP Pulse Ox 96.8 F 75 16 162/84 99 12/11/18 23:50 12/11/18 23:50 12/11/18 23:50 12/11/18 23:50 12/11/18 23:50 Vital Signs Reviewed: Yes Appearance: Positive: Well-Appearing Skin: Positive: Warm Head/Face: Positive: Normal Head/Face Inspection Eyes: Positive: Normal ENT: Positive: Normal ENT inspection Neck: Positive: Supple Respiratory/Lung Sounds: Positive: Clear to Auscultation Cardiovascular: Positive: Normal Abdomen Description: Positive: Nontender Musculoskeletal: Positive: Normal Neurological: Positive: Normal Psychiatric: Positive: Normal AVPU Assessment: Alert - Saulo Coma Scale Best Eye Response: 4 - Spontaneous Best Motor Response: 6 - Obeys Commands Best Verbal Response: 5 - Oriented Coma Scale Total: 15 Diagnostics - Vital Signs Vital Signs Temp Pulse Resp BP Pulse Ox 12/12/18 01:24 18 12/11/18 23:50 96.8 F 75 16 162/84 99 - Laboratory Lab Results: Lab Results 12/12/18 12/12/18 12/12/18 Range/Units 00:43 01:12 01:12 WBC 14.6 H (3.5-10.8) 10^3/uL RBC 4.76 (3.70-4.87) 10^6 /uL Hgb 14.6 (12.0-16.0) g/dL Hct 42 (35-47) % MCV 89 (80-97) fL MCH 31 (27-31) pg MCHC 35 (31-36) g/dL RDW 13 (10-15) % Plt Count 332 (150-450) 10^3/uL MPV 9.1 (7.4-10.4) fL Neut % (Auto) 69.6 % Lymph % (Auto) 16.8 % Graham % (Auto) 9.9 % Eos % (Auto) 3.2 % Baso % (Auto) 0.5 % Absolute Neuts (auto) 10.2 H (1.5-7.7) 10^3/ul Absolute Lymphs (auto) 2.4 (1.0-4.8) 10^3/ul Absolute Monos (auto) 1.4 H (0-0.8) 10^3/ul Absolute Eos (auto) 0.5 (0-0.6) 10^3/ul Absolute Basos (auto) 0.1 (0-0.2) 10^3/ul Absolute Nucleated RBC 0.0 10^3/ul Nucleated RBC % 0.0 ESR Pending Sodium 137 (135-145) mmol/L Potassium 3.9 (3.5-5.0) mmol/L Chloride 103 (101-111) mmol/L Carbon Dioxide 26 (22-32) mmol/L Anion Gap 8 (2-11) mmol/L BUN 10 (6-24) mg/dL Creatinine 0.59 (0.51-0.95) mg/dL Est GFR ( Amer) 124.2 (>60) Est GFR (Non-Af Amer) 102.6 (>60) BUN/Creatinine Ratio 16.9 (8-20) Glucose 137 H (70-100) mg/dL POC Glucose (mg/dL) 152 H (70-100) mg/dL Lactic Acid (0.5-2.0) mmol/L Calcium 10.1 (8.6-10.3) mg/dL Total Bilirubin 0.40 (0.2-1.0) mg/dL AST 15 (13-39) U/L ALT 10 (7-52) U/L Alkaline Phosphatase 99 (34-104) U/L C-Reactive Protein 22.84 H (<8.01) mg/L Total Protein 6.5 (6.4-8.9) g/dL Albumin 4.0 (3.2-5.2) g/dL Globulin 2.5 (2-4) g/dL Albumin/Globulin Ratio 1.6 (1-3) 12/12/18 Range/Units 01:12 WBC (3.5-10.8) 10^3/uL RBC (3.70-4.87) 10^6 /uL Hgb (12.0-16.0) g/dL Hct (35-47) % MCV (80-97) fL MCH (27-31) pg MCHC (31-36) g/dL RDW (10-15) % Plt Count (150-450) 10^3/uL MPV (7.4-10.4) fL Neut % (Auto) % Lymph % (Auto) % Graham % (Auto) % Eos % (Auto) % Baso % (Auto) % Absolute Neuts (auto) (1.5-7.7) 10^3/ul Absolute Lymphs (auto) (1.0-4.8) 10^3/ul Absolute Monos (auto) (0-0.8) 10^3/ul Absolute Eos (auto) (0-0.6) 10^3/ul Absolute Basos (auto) (0-0.2) 10^3/ul Absolute Nucleated RBC 10^3/ul Nucleated RBC % ESR Sodium (135-145) mmol/L Potassium (3.5-5.0) mmol/L Chloride (101-111) mmol/L Carbon Dioxide (22-32) mmol/L Anion Gap (2-11) mmol/L BUN (6-24) mg/dL Creatinine (0.51-0.95) mg/dL Est GFR ( Amer) (>60) Est GFR (Non-Af Amer) (>60) BUN/Creatinine Ratio (8-20) Glucose (70-100) mg/dL POC Glucose (mg/dL) (70-100) mg/dL Lactic Acid 1.7 (0.5-2.0) mmol/L Calcium (8.6-10.3) mg/dL Total Bilirubin (0.2-1.0) mg/dL AST (13-39) U/L ALT (7-52) U/L Alkaline Phosphatase (34-104) U/L C-Reactive Protein (<8.01) mg/L Total Protein (6.4-8.9) g/dL Albumin (3.2-5.2) g/dL Globulin (2-4) g/dL Albumin/Globulin Ratio (1-3) Result Diagrams: 12/12/18 01:12 12/12/18 01:12 Lab Statement: Any lab studies that have been ordered have been reviewed, and results considered in the medical decision making process. Course/Dx - Course Course Of Treatment: Patient complains of redness, swelling and pain to right index finger 6 days. Patient unaware of any trauma or bite to finger. Patient was seen 5 days ago at a clinic in [place] and placed on antibiotics for 4 days, however symptoms progressed. Patient finished antibiotics yesterday morning. Denies fever, cough, sore throat, CP, SOB, N/V/D , abdominal pain, change in urine, change in BM. Medical history is diabetes. Patient had Advil at 2100 today. Physical exam:Erythema, swelling to the entire length of index finger of right hand. Large blister over the distal phalanx on volar side. White purulence visible to skin over the volar side of the second phalanx. No pain with passive extension. Pain to palpation over abscess but not along proximal flexor surfaces. Finger does not present in flexed position. PMS intact distally. I&D performed by Dr. Lee. Patient given clindamycin 900 mg IV here in the ED. Vital signs within normal limits. WBC 14.0. CRP 23. Labs otherwise unremarkable. Diagnosis felon productive cough are. Patient will be given clindamycin by mouth 300 mg 4 times a day 7 days. Rx for Percocet. Follow-up with orthopedics later today. Patient placed sling for elevation. Pt will be d/c by Dr Lee at 5:30am due to morphine given earlier. - Diagnoses Provider Diagnoses: Felon of finger of right hand Discharge - Sign-Out/Discharge Documenting (check all that apply): Patient Departure Patient Received Moderate/Deep Sedation with Procedure: No - Discharge Plan Condition: Stable Disposition: HOME Prescriptions: Clindamycin HCl 300 mg PO QID 7 Days #28 capsule oxyCODONE/Acetamin 5/325 MG* [Percocet 5/325 TAB*] 1 tab PO Q6H PRN 4 Days #12 tab MDD 4 tabs PRN Reason: Pain Patient Education Materials: Cellulitis (ED) Referrals: Baldomero Odom MD [Primary Care Provider] - Tito Lancaster MD [Medical Doctor] - Additional Instructions: Take antibiotics as directed for 7 days. Percocet for pain. Follow-up with orthopedics Dr. Lancaster today in the morning for further evaluation of your hand. Return to the ED for any new or worsening symptoms. - Billing Disposition and Condition Condition: STABLE Disposition: Home
[2018-12-12 02:29] LABS: Erythrocyte Sed Rate 28 mm/Hr (0-29)
--- NOTE | 2018-12-12 02:36 | ED ---
Progress - Progress Note Progress Note: Upon physical exam, patient has pulps space infection over her right index. Course/Dx - Course Course Of Treatment: An incision and drainage of the pulps space infection of the right index was done. Patient was given digital block using lidocaine 2% without epi. A midline incision was made over the first flexor of the palmar surface, and about 5 cc of blood and pus came out. A smaller incision was made on the palmar surface of the second flexor of the palmar surface. It was packed with iodoform and wrapped with xeroform, kerlix and coban. In ED course, patient was given morphine. Patient will be discharged home with prescription for Percocet and instructions to follow up with orthopedics in 1 day. She was instructed to return to ED for new or worsening symptoms. She is agreeable to this plan. - Diagnoses Provider Diagnoses: Felon of finger of right hand Discharge - Sign-Out/Discharge Documenting (check all that apply): Patient Departure - Discharge Patient Received Moderate/Deep Sedation with Procedure: No - Discharge Plan Condition: Stable Disposition: HOME Prescriptions: Clindamycin HCl 300 mg PO QID 7 Days #28 capsule oxyCODONE/Acetamin 5/325 MG* [Percocet 5/325 TAB*] 1 tab PO Q6H PRN 4 Days #12 tab MDD 4 tabs PRN Reason: Pain Patient Education Materials: Cellulitis (ED) Referrals: Baldomero Odom MD [Primary Care Provider] - Tito Lancaster MD [Medical Doctor] - Additional Instructions: Take antibiotics as directed for 7 days. Percocet for pain. Follow-up with orthopedics Dr. Lancaster today in the morning for further evaluation of your hand. Return to the ED for any new or worsening symptoms. - Attestation Statements Document Initiated by Scribe: Yes Documenting Scribe: Sonam Conn Provider For Whom Scribe is Documenting (Include Credential): Debra Lee MD Scribe Attestation: Sonam Miramontes, scribed for Debra Lee MD on 12/12/18 at 0606. Status of Scribe Document: Ready
[2018-12-12 06:03] VITALS: BP 139/59
== END 2018-12-12 06:03 | disposition home or self-care (01) ==
LOC: ED 23:44
DX: L03.011 Cellulitis of right finger (principal); E11.9 Type 2 diabetes mellitus without complications; R60.0 Localized edema; F17.210 Nicotine dependence, cigarettes, uncomplicated
CPT/HCPCS: 36415; 80053; 83605; 85025; 85652; 86140; 87040; 87070; 87077; 87186; 87205; 87640; 87641; 96365; 96366; 96375; 99283; A9270-GY; J2270; J2405